=== PATIENT | male | born 1955 | race Caucasian/White ===

== ENCOUNTER 2016-07-12 06:34 | Emergency (ER) | payer OTHER ==
--- NOTE | 2016-07-12 07:17 | ED NURSING NOTES ---
Clinical Report - Nurses [facility] [address] [place] [address] 07/12/2016 6:36 Patient: ELIANA PEREZ TRIAGE Triage time 0648. Acuity: LEVEL 4. Chief Complaint: (unable to sleep). Alert. RAMON COMA SCORE: Ramon Coma Scale: 15- eyes open spontaneously (4); best verbal response- oriented x 4 (5); best motor response- obeys commands (6). --06:55 Savannah Godoy R.N. 06:48 07/12/16. BP: 138/91. HR: 88. RR: 18 (unlabored). O2 saturation: 98% on room air. Temp: 98.2 F (oral). Pain level now: 0/10. --06:55 Savannah Godoy R.N. Weight: 92.9 kg stated. Height/Length: 68 inches Per Patient. BMI: 31.1. --06:47 Savannah Godoy R.N. Medications QUEtiapine Fumarate Oral 100 mg, daily. --06:51 Savannah Godoy R.N. ClonazePAM Oral. --06:51 Savannah Godoy R.N. Allergies No Known Drug Allergy. --06:52 Savannah Godoy R.N. Medication/allergy information source: the patient. --06:55 Savannah Godoy R.N. History Arrived by private vehicle. Historian: patient. Unaccompanied. Primary physician (Steve). ( Pt c/o unable to sleep last night. Pt states he's out of his quetiapine and no refills left. Per pharmacy he has to make an appointment.). This started last night. 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 SOCIAL HX: Never smoker. No alcohol use or drug use. ABUSE ASSESSMENT: No report of abuse. FALL RISK ASSESSMENT: Fall risk assessment completed. No fall risk identified. NUTRITIONAL RISK ASSESSMENT: The nutritional risk assessment revealed no deficiencies. FUNCTIONAL ASSESSMENT: Functional assessment: no impairments noted. LEARNING NEEDS ASSESSMENT: The learning needs assessment revealed no barriers. SKIN INTEGRITY ASSESSMENT: Skin integrity risk assessment completed. No skin integrity risk identified. --06:55 Savannah Godoy R.N. PROBLEMS: Anxiety disorder. Depression. Bipolar Disorder. --06:53 Savannah Godoy R.N. ADDITIONAL SURGERIES: Collapsed lung. --06:53 Savannah Godoy R.N. Interventions ID band on patient. To treatment room. --06:55 Savannah Godoy R.N. PHYSICAL ASSESSMENT 06:50. Ambulatory to room. GENERAL / NEURO / PSYCH: Alert. Oriented X 4. Appears in no acute distress. RESPIRATORY: Respirations not labored. SKIN: Skin intact. Skin is warm and dry. Normal skin turgor. --07:08 Savannah Godoy R.N. NURSING PROGRESS NOTES Two patient identifiers checked. Side rails up x 1. Bed placed in lowest position. Brakes of bed on. Patient ready for evaluation. --06:55 Savannah Godoy R.N. DISPOSITION / DISCHARGE Departure time: 07:25. Discharge instructions provided and reviewed with the patient. Patient verbalized understanding. Written instructions not provided in Nepali. The patient was discharged home. He left the Emergency Department ambulatory and via private vehicle. --07:25 Vivian Garcia R.N. Locked/Released at 07/12/2016 13:38 by Vivian Garcia R.N.
--- NOTE | 2016-07-12 07:17 | ED NURSING NOTES ---
Clinical Report - Nurses [facility] [address] [place] [address] 07/12/2016 6:36 Patient: ELIANA PEREZ TRIAGE Triage time 0648. Acuity: LEVEL 4. Chief Complaint: (unable to sleep). Alert. RAMON COMA SCORE: Ramon Coma Scale: 15- eyes open spontaneously (4); best verbal response- oriented x 4 (5); best motor response- obeys commands (6). --06:55 Savannah Godoy R.N. 06:48 07/12/16. BP: 138/91. HR: 88. RR: 18 (unlabored). O2 saturation: 98% on room air. Temp: 98.2 F (oral). Pain level now: 0/10. --06:55 Savannah Godoy R.N. Weight: 92.9 kg stated. Height/Length: 68 inches Per Patient. BMI: 31.1. --06:47 Savannah Godoy R.N. Medications QUEtiapine Fumarate Oral 100 mg, daily. --06:51 Savannah Godoy R.N. ClonazePAM Oral. --06:51 Savannah Godoy R.N. Allergies No Known Drug Allergy. --06:52 Savannah Godoy R.N. Medication/allergy information source: the patient. --06:55 Savannah Godoy R.N. History Arrived by private vehicle. Historian: patient. Unaccompanied. Primary physician (Steve). ( Pt c/o unable to sleep last night. Pt states he's out of his quetiapine and no refills left. Per pharmacy he has to make an appointment.). This started last night. 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 SOCIAL HX: Never smoker. No alcohol use or drug use. ABUSE ASSESSMENT: No report of abuse. FALL RISK ASSESSMENT: Fall risk assessment completed. No fall risk identified. NUTRITIONAL RISK ASSESSMENT: The nutritional risk assessment revealed no deficiencies. FUNCTIONAL ASSESSMENT: Functional assessment: no impairments noted. LEARNING NEEDS ASSESSMENT: The learning needs assessment revealed no barriers. SKIN INTEGRITY ASSESSMENT: Skin integrity risk assessment completed. No skin integrity risk identified. --06:55 Savannah Godoy R.N. PROBLEMS: Anxiety disorder. Depression. Bipolar Disorder. --06:53 Savannah Godoy R.N. ADDITIONAL SURGERIES: Collapsed lung. --06:53 Savannah Godoy R.N. Interventions ID band on patient. To treatment room. --06:55 Savannah Godoy R.N. PHYSICAL ASSESSMENT 06:50. Ambulatory to room. GENERAL / NEURO / PSYCH: Alert. Oriented X 4. Appears in no acute distress. RESPIRATORY: Respirations not labored. SKIN: Skin intact. Skin is warm and dry. Normal skin turgor. --07:08 Savannah Godoy R.N. NURSING PROGRESS NOTES Two patient identifiers checked. Side rails up x 1. Bed placed in lowest position. Brakes of bed on. Patient ready for evaluation. --06:55 Savannah Godoy R.N. DISPOSITION / DISCHARGE Departure time: 07:25. Discharge instructions provided and reviewed with the patient. Patient verbalized understanding. Written instructions not provided in Turkmen. The patient was discharged home. He left the Emergency Department ambulatory and via private vehicle. --07:25 iVvian Garcia R.N. Locked/Released at 07/12/2016 13:38 by Vivian Garcia R.N.
--- NOTE | 2016-07-12 07:17 | ED CLINICAL REPORT ---
Clinical Report - Physicians/Mid Levels [facility] [address] [place] [address] 07/12/2016 6:36 Patient: ELIANA PEREZ Arrived- By private vehicle. Historian- patient. Referred (self). HISTORY OF PRESENT ILLNESS Chief Complaint: MEDICATION REFILL. This started yesterday. Has not been sleeping. No delusions, suicidal thoughts, self-injury inflicted or hallucinations. The symptoms are described as moderate. No injury is present. Additional history - reports he was told to get an appointment for refill of his medications. has bottle with him. bottle says that it ran out in May 2016. It is now July 12, 2016. Similar symptoms previously: None. Recent medical care: Not recently seen/assessed. REVIEW OF SYSTEMS No fever or skin rash. All systems otherwise negative, except as recorded above. PAST HISTORY See nurses notes. SOCIAL HISTORY Never smoker. No alcohol use or drug use. No social support. ADDITIONAL NOTES The nursing notes have been reviewed. PHYSICAL EXAM Vital Signs: 07/12/2016 06:48 BP: 138/91. HR: 88. RR: 18. O2 saturation: 98%. Temp: 98.2 F. Pain level now: 0/10. Blood pressure normal. Oxygen saturation normal. Appearance: Alert. No acute distress. Eyes: Pupils equal, round and reactive to light. Neck: Normal inspection. CVS: Normal heart rate and rhythm. Heart sounds normal. Respiratory: Chest nontender. Abdomen: Soft and nontender. Skin: Skin warm and dry. Normal skin color. Normal skin turgor. Psych / Neuro: Oriented X 3. Mood and affect normal. Speech normal. Cognition normal. Thought process and content normal. Denies suicidal thoughts. Patient does not express homicidal thoughts. Insight and judgement normal. Cranial nerves normal (as tested). No cerebellar findings. No motor deficit. No sensory deficit. Reflexes normal. PROGRESS AND PROCEDURES Course of Care: The patient is a 61-year-old male with past medical history significant for bipolar type I as well as anxiety presented for evaluation of medication refill insomnia. Patient presented around his medications and would like them refilled. Head discussion with patient in regards to his presentation here in the emergency department. Patient has no symptoms of suicidal ideation or homicidal ideation. Patient is not a danger to self or others. Had a long discussion with patient in regards to the appropriate use of the emergency department. Had discussion with patient in regards to safety of medication prescriptions by their doctor and not by an emergency medicine doctor. Explained to patient that these medications are somewhat specialized and require follow-up which cannot be done through the emergency department. Patient having unreasonable expectations from the emergency department. educated patient in regards to the appropriate role of the emergency department. The patient that only a few days of medication can be prescribed to him as it would be unwise to have a much larger prescription given. Patient was informed that he may not be able to get a refill of his psychiatric medications if he goes to the emergency department for safety reasons. Upon discharge, the patient was upset that he is not getting the actual pills here in the emergency department. The patient expected the pills to be given to him while here. Patient was again educated in regards to the role of the emergency department and the inability to dispense medications from the emergency department directly. Patient encouraged to follow up with his primary care doctor soon as possible for appropriate medication refill. The patient is nontoxic and is in no acute distress. Vital signs are unremarkable except for mild hypertension which he can follow up with his primary care doctor. Discussed the patient workup, diagnosis, home care, follow-up, and return precautions but all questions answered. The patient expressed understanding of these instructions and was agreeable to them. Disposition: Discharged. Condition: good. CLINICAL IMPRESSION 07/12/2016 06:48 BP: 138/91. HR: 88. RR: 18. O2 saturation: 98%. Temp: 98.2 F. Pain level now: 0/10. Hypertensive. Oxygen saturation normal. Essential hypertension. Psychophysiologic insomnia. History of Bipolar Disorder Medication refill for above diagnosis. INSTRUCTIONS Warnings: GENERAL WARNINGS: Return or contact your physician immediately if your condition worsens or changes unexpectedly, if not improving as expected, or if other problems arise. Specifically return if pain, vomiting, bleeding, breathing difficulty or fever. Your Current Medications: CONTINUE TAKING THE FOLLOWING MEDICATIONS: ClonazePAM Oral. QUEtiapine Fumarate Oral : 100 mg daily. Prescription Medications: Quetiapine 100 mg: take 1 tablet orally at bedtime. Dispense five (5). No refills. Follow-up: Return to the emergency department as needed. Follow up with your doctor in two days. Reason for referral: recheck today's concerns. Summary of care provided to patient via paper. Screening today revealed the patient's blood pressure to be in the normal range. The patient should follow up with a primary care provider for blood pressure management. Understanding of the discharge instructions verbalized by patient. (Electronically signed by Johnie Rosen Dr. 07/12/2016 7:32)
--- NOTE | 2016-07-12 13:39 | ED MAR SUMMARY ---
..... Medication Administration Record [facility] [address] [place], [place] [id number] Patient: ELIANA PEREZ Visit ID: [id number] 61y, M Weight: 92.9 kg Height/Length: 68 in BMI: 31.1 ALLERGIES: No Known Drug Allergy
--- NOTE | 2016-07-12 13:39 | ED MED RECONCILIATION SUMMARY ---
Patient: ELIANA PEREZ Medication Reconciliation Report [facility] VisitID: [id number] [address] [place] [address] 61y, M Registration Date/Time: 07/12/2016 Weight: 92.9 kg Height/Length: 68 in. BMI: 31.1 ALLERGIES: No Known Drug Allergy The patient's Home Medications are listed below: CONTINUE TAKING THE FOLLOWING MEDICATIONS: ClonazePAM Oral QUEtiapine Fumarate Oral 100 mg, daily The source(s) of the original Home Medication information: patient The following Medications were given to the patient in the Emergency Department: None. The following Medications were prescribed to the patient: Quetiapine 100 mg: take 1 tablet orally at bedtime. Dispense five (5). No refills. -- Johnie Rosen Dr.
--- NOTE | 2016-07-12 13:39 | ED MED RECONCILIATION SUMMARY ---
Patient: ELIANA PEREZ Medication Reconciliation Report [facility] VisitID: [id number] [address] [place] [address] 61y, M Registration Date/Time: 07/12/2016 Weight: 92.9 kg Height/Length: 68 in. BMI: 31.1 ALLERGIES: No Known Drug Allergy The patient's Home Medications are listed below: CONTINUE TAKING THE FOLLOWING MEDICATIONS: ClonazePAM Oral QUEtiapine Fumarate Oral 100 mg, daily The source(s) of the original Home Medication information: patient The following Medications were given to the patient in the Emergency Department: None. The following Medications were prescribed to the patient: Quetiapine 100 mg: take 1 tablet orally at bedtime. Dispense five (5). No refills. -- Johnie Rosen Dr.
--- NOTE | 2016-07-12 13:39 | ED MAR SUMMARY ---
..... Medication Administration Record [facility] [address], [place] [id number] Patient: ELIANA PEREZ Visit ID: [id number] 61y, M Weight: 92.9 kg Height/Length: 68 in BMI: 31.1 ALLERGIES: No Known Drug Allergy
--- NOTE | 2016-07-12 13:39 | ED DISCHARGE INSTRUCTIONS ---
Patient: ELIANA PEREZ General Instructions Located Within [facility] VisitID: [id number] [address] [place] [address] 61y, M Registration Date/Time: 07/12/2016 07/12/2016 06:48 BP: 138/91. HR: 88. RR: 18. O2 saturation: 98%. Temp: 98.2 F. Pain level now: 0/10. Hypertensive. Oxygen saturation normal. Essential hypertension. Psychophysiologic insomnia. History of Bipolar Disorder Medication refill for above diagnosis. INSTRUCTIONS Warnings: GENERAL WARNINGS: Return or contact your physician immediately if your condition worsens or changes unexpectedly, if not improving as expected, or if other problems arise. Specifically return if pain, vomiting, bleeding, breathing difficulty or fever. Your Current Medications: CONTINUE TAKING THE FOLLOWING MEDICATIONS: ClonazePAM Oral. QUEtiapine Fumarate Oral : 100 mg daily. Prescription Medications: Quetiapine 100 mg: take 1 tablet orally at bedtime. Dispense five (5). No refills. Follow-up: Return to the emergency department as needed. Follow up with your doctor in two days. Reason for referral: recheck today's concerns. Summary of care provided to patient via paper. Screening today revealed the patient's blood pressure to be in the normal range. The patient should follow up with a primary care provider for blood pressure management. Understanding of the discharge instructions verbalized by patient. ADDITIONAL INFORMATION High Blood Pressure -- To Be Confirmed [No Tx] Your blood pressure was higher today than normal. Sometimes anxiety or pain can cause a temporary rise in blood pressure that later returns to normal. If your blood pressure is high on one measurement, this does not mean that you have hypertension (a chronic illness). However, you must have your blood pressure measured again within the next few days to find out if its still high. A normal blood pressure is 120/80 or less. The first (top) number is the "systolic" pressure. The second (bottom) number is the "diastolic" pressure. Hypertension exists when either the top number is 140 or higher, OR the bottom number is 90 or higher on repeated measurements. Blood pressure in the range of 120-140 (systolic) or 80-89 (diastolic) is considered "pre-hypertension". This means your are at risk for getting hypertension. You should have regular blood pressure checks to be sure your blood pressure is not rising. Home Care: Measure your blood pressure on 3 different days and write down the results. This can be done at your doctor's office or this facility. Some pharmacies and grocery stores offer automated blood pressure machines for your use. Follow Up: If your blood pressure is "high" (over 120/80) on 2 out of 3 days, you will need to follow up with your doctor for further evaluation and treatment. DO NOT PUT THIS OFF! Untreated high blood pressure increases the risk for heart attack, also known as acute myocardial infarction, or AMI, and stroke. It is a treatable condition. Get Prompt Medical Attention if any of the following occur: Chest pain or shortness of breath Severe headache Throbbing or rushing sound in the ears Nosebleed Sudden severe abdominal pain Extreme drowsiness, confusion or fainting Dizziness or vertigo (dizziness with spinning sensation) Weakness of an arm or leg or one side of the face Difficulty with speech or vision Insomnia Insomnia refers to a difficulty going to sleep or staying asleep, or both. Insomnia has many causes, including anxiety, stress, depression, chronic pain, sleeping cycles out of balance due to working night shifts or excess napping during the day, and a condition called sleep apnea. Insomnia can be a side effect from stimulant medicines such as decongestants, asthma inhalers and pills, diet pills, and illegal drugs such as speed, crank, crack, and PCP. Home Care: Review your medicines with your doctor or pharmacist to find out if they can cause insomnia. Caffeine, smoking and alcohol also affect sleep. Limit your daily use and do not use these before bedtime. Alcohol may make you sleepy at first, but as its effects wear off, you may awaken a few hours later and have trouble returning to sleep. Do not exercise, eat or drink large amounts of liquid within 2 hours of your bedtime. Improve your sleep habits. Have a fixed bed and wake-up time. Try to keep noise, light and heat in your bedroom at a comfortable level. Try using earplugs or eyeshades if needed. Avoid watching TV in bed. If you do not fall asleep within 30 minutes, try to relax by reading or listening to soft music. Limit daytime napping to one 30 minute period, early in the day. Get regular exercise. Find other ways to lessen your stress level. If a medicine was prescribed to help reset your sleep patterns, take it as directed. Sleeping pills are intended for short-term use, only. If taken for too long, the effect wears off while the risk of physical addiction and psychological dependence increases. Follow-Up with your doctor or as directed by our staff if you feel that your insomnia is not responding to the above measures. Get Prompt Medical Attention if any of the following occur: Extreme restlessness or irritability Confusion or hallucinations (seeing or hearing things that are not there) Anxiety, depression Several days without sleeping You have been given the following additional information: Hypertension, To Be Confirmed Insomnia (Electronically signed by Johnie Rosen Dr. 07/12/2016 7:32)
== END 2016-07-12 07:26 | disposition home or self-care (01) ==
LOC: ED SRH 06:34
DX: F31.9 Bipolar disorder, unspecified (principal); F51.04 Psychophysiologic insomnia; I10 Essential (primary) hypertension; Z76.0 Encounter for issue of repeat prescription

== ENCOUNTER 2016-11-10 15:38 | Emergency (ER) | payer OTHER ==
--- NOTE | 2016-11-10 17:36 | ED ORDER SUMMARY ---
..... Patient: ELIANA PEREZ OrderSheet [facility] VisitID: [id number] [address] [place] [address] 61y, M Registration Date/Time: 11/10/2016 ORDER SHEET Weight: 97.5 kg (stated) Allergies: No Known Drug Allergy GENERAL ORDERS: CBC w Diff Urgent (16:16 11/10/2016 EKoroleva P.A.-C) (Ack 16:18 LMuller) (16:31 LMuller) CMP Urgent (16:16 11/10/2016 EKoroleva P.A.-C) (Ack 16:18 LMuller) (16:31 LMuller) UA-Culture if indicated Urgent (16:16 11/10/2016 EKoroleva P.A.-C) (Ack 16:18 LMuller) (22:45 Dom R.N.) TSH Urgent (17:04 11/10/2016 EKoroleva P.A.-C) (17:07 LMuller) MEDICATION ORDERS: IV FLUIDS: ORDER SHEET NOTES: [Electronically signed by Janie WoodyAKeaton-C (17:57 11/10/2016)] [Electronically signed by Alma Magdaleno R.N. (22:45 11/10/2016)] [Electronically locked/signed by Alma Magdaleno R.N. (22:45 11/10/2016)]
--- NOTE | 2016-11-10 17:36 | ED NURSING NOTES ---
Clinical Report - Nurses [facility] [address] [place] [address] 11/10/2016 15:38 Patient: ELIANA PEREZ TRIAGE Triage time 15:50 Nov 10 2016. Acuity: LEVEL 4. Chief Complaint: (unable to sleep, not eating/drinking and feeling sluggish). Alert. No acute distress. SEPSIS SCREEN: Sepsis Screen. Negative (no infection suspected/documented). KELLY COMA SCORE: [place] Coma Scale: 15- eyes open spontaneously (4); best verbal response- oriented x 4 (5); best motor response- obeys commands (6). --15:59 Alma Magdaleno R.N. 15:52 11/10/16. BP: 151/94. HR: 105. RR: 16. O2 saturation: 96%. Temp: 98.5 F. Pain level now: 0/10. --15:59 Alma Magdaleno R.N. Weight: 97.5 kg stated. Height/Length: 68 inches Per Patient. BMI: 32.7. --15:52 Alma Magdaleno R.N. Medications ClonazePAM Oral. QUEtiapine Fumarate Oral 100 mg, daily. --15:55 Alma Magdaleno R.N. Ambien Oral. --15:56 Alma Magdaleno R.N. Bipolar medications. --15:56 Alma Magdaleno R.N. Allergies No Known Drug Allergy. --15:55 Alma Magdaleno R.N. History Arrived by private vehicle. Historian: patient. Onset. (about 4 days ago). ( pt states that [facility] and since the day after he has not been able to sleep eat drink or think very clearly). 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 PAST MEDICAL HX: Immunizations: up-to-date. SOCIAL HX: Never smoker. No alcohol use or drug use. No infectious disease exposure. SELF HARM ASSESSMENT: A self harm assessment was performed. The patient answered "no" to the question "Do you have thoughts of harming or killing yourself?". FALL RISK ASSESSMENT: Fall risk assessment completed. No fall risk identified. NUTRITIONAL RISK ASSESSMENT: The nutritional risk assessment revealed no deficiencies. FUNCTIONAL ASSESSMENT: Functional assessment: no impairments noted. LEARNING NEEDS ASSESSMENT: The learning needs assessment revealed no barriers. ABUSE ASSESSMENT: Abuse assessment: The patient was asked "Do you feel safe in your home?". SKIN INTEGRITY ASSESSMENT: Skin integrity risk assessment completed. No skin integrity risk identified. --15:59 Alma Magdaleno R.N. PROBLEMS: Hypertension. Insomnia. Anxiety disorder. Depression. Bipolar Disorder. --15:57 Alma Magdaleno R.N. ADDITIONAL SURGERIES: Ankle surgery. Collapsed lung. --15:57 Alma Magdaleno R.N. Interventions ID band on patient. To room. --15:59 Alma Magdaleno R.N. PHYSICAL ASSESSMENT GENERAL / NEURO / PSYCH: Alert. Oriented X 4. Appears in no acute distress. ( sluggish and shakey). HEENT: No facial asymmetry noted. RESPIRATORY: Respirations not labored. CVS: Capillary refill less than 2 seconds. Pulses within normal limits. GI / : Abdomen soft and nontender. SKIN: Skin is warm and dry. --16:00 Alma Magdaleno R.N. NURSING PROGRESS NOTES Patient gowned. Head of bed elevated. Patient identifiers checked. Call light placed in reach. Side rails up x 1. Bed placed in lowest position. Brakes of bed on. --15:59 Alma Magdaleno R.N. ( pt states that he is unable to urinate at this time.). --17:32 Alma Magdaleno R.N. 17:32 11/10/16. BP: 140/83. HR: 95. RR: 12. O2 saturation: 96%. Pain level now: 0/10. --17:32 Alma Magdaleno R.N. DISPOSITION / DISCHARGE Departure time: 17:45 Nov 10 2016. Condition at departure: unchanged. No learning barriers present. Discharge instructions provided and reviewed with the patient. Reviewed medication(s) side effects, precautions, dosing and course information. Reviewed referral to a primary care physician for followup. Patient verbalized understanding. Written instructions provided in Welsh. The patient was discharged home. He left the Emergency Department ambulatory and via private vehicle. Patient driving. FALL RISK ASSESSMENT: Fall risk assessment completed. No fall risk identified. --17:45 Alma Magdaleno R.N. 17:32 11/10/16. BP: 140/83. HR: 95. RR: 12. O2 saturation: 96%. Pain level now: 0/10. --17:45 Alma Magdaleno R.N. Locked/Released at 11/10/2016 22:45 by Alma Magdaleno R.N.
--- NOTE | 2016-11-10 17:36 | ED CLINICAL REPORT ---
Clinical Report - Physicians/Mid Levels Located Within [facility] [address] [place] [address] 11/10/2016 15:38 Patient: ELIANA PEREZ Time Seen: 16:24 Nov 10 2016. Arrived- By private vehicle. Historian- patient. HISTORY OF PRESENT ILLNESS Chief Complaint: insomnia. 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 (patient reports recently use of steroid injections as prescribed, has had 4-6 doses, with known decreased ability and desire to sleep, as well as desire to drink water, has been watching this onset generalized at home in his apartment, otherwise has not been doing other activities. Denies any shortness of breath, tremors, headache. He has no other complaints, cough, shortness of breath.). REVIEW OF SYSTEMS No fever, sore throat, nasal congestion, cough or difficulty breathing. No bloody stools, skin rash, blackouts or double vision. All systems otherwise negative, except as recorded above. PAST HISTORY Problems: Hypertension. Insomnia. Anxiety disorder. Depression. Bipolar Disorder. Medications: Bipolar medications. Ambien Oral. ClonazePAM Oral. QUEtiapine Fumarate Oral 100 mg, daily. Allergies: No Known Drug Allergy. SOCIAL HISTORY Never smoker. No alcohol use or drug use. ADDITIONAL NOTES The nursing notes have been reviewed. PHYSICAL EXAM Vital Signs: 11/10/2016 15:52 BP: 151/94. HR: 105. RR: 16. O2 saturation: 96%. Temp: 98.5 F. Pain level now: 0/10. Appearance: Alert. Eyes: Eyes normal inspection. ENT: Ears normal. Nose normal. CVS: Normal heart rate and rhythm. Heart sounds normal. No extra heart sounds. Respiratory: No respiratory distress. Breath sounds normal. Back: Normal inspection. Skin: Skin warm. Normal skin color. Neuro: Oriented X 3. LABS, X-RAYS, AND EKG Laboratory Tests: CBC w Diff: (SARTHAK: 11/10/2016 16:20) ( MsgRcvd 11/10/2016 16:43) Final results Test Result Flag Units (Reference) WHITE BLOOD COUNT 10.7 K/uL (4.5-11.5) RED BLOOD COUNT 5.05 M/uL (4.50-5.90) HEMOGLOBIN 15.8 gm/dL (13.5-17.5) HEMATOCRIT 47.9 % (41.0-53.0) MEAN CELL VOLUME 95 fL (80-100) MEAN CORPUSCULAR HGB 31 pg (26-34) MEAN CORPUSCULAR HGB CONC 33 g/dL (31-37) RED CELL DISTRIBUTION WIDTH 13.4 % (11.6-14.8) PLATELET COUNT 258 K/uL (150-400) NEUTROPHIL % 78.1 H % (50-75) LYMPH % 11.8 L % (25-40) MONO % 9.6 % (3-14) EOSINOPHIL % 0.2 % (0-4) BASOPHIL % 0.3 % (0-2) CMP: (SARTHAK: 11/10/2016 16:20) ( MsgRcvd 11/10/2016 17:23) Final results Test Result Flag Units (Reference) GLUCOSE 122 H mg/dL (70-110) BUN 21 H mg/dL (7-18) CREATININE 1.3 mg/dL (0.6-1.3) Estimated GFR >60 mL/min Estimated GFR- >60 mL/min Note: Persistent reduction over 3 months in eGFR<60 mL/min/1.73 m2 defines CKD. Patients with eGFR values>=60 mL/min/1.73 m2 may also have CKD if evidence ofpersistent proteinuria. Additional information may be foundat www.kidney.org. SODIUM 138 mmol/L (136-145) POTASSIUM 4.2 mmol/L (3.5-5.1) CHLORIDE 103 mmol/L (98-107) CARBON DIOXIDE 22 mmol/L (21-32) CALCIUM 9.3 mg/dL (8.5-10.1) TOTAL PROTEIN 7.9 g/dL (6.4-8.2) ALBUMIN 4.1 g/dL (3.3-5.0) BILIRUBIN, TOTAL 1.0 mg/dL (0.0-1.0) ALKALINE PHOSPHATASE 97 U/L (46-116) AST (SGOT) 15 U/L (15-37) ALT (SGPT) 29 U/L (12-78) . PROGRESS AND PROCEDURES Course of Care: Patient with difficulty sleeping. Denies being out of his medications. Patient very stable. Recent new medication of testosterone. Otherwise patient is stable. Patient denies thoughts of harming himself or others. I do feel he is safe to be discharged to home care. Patient has adequate follow-up. Patient is stable. Symptoms better. Patient/family counseled. Disposition: Discharged. CLINICAL IMPRESSION insomnia likely due to medication reaction. INSTRUCTIONS Prescription Medications: Ativan 2 mg: take 2 orally at bedtime for 3 days. No refill. (#6) OTC Medications: Benadryl Allergy 25 mg (available over the counter): take 2 orally as needed for sleep. No refill. Substitution is permissible. (10) Follow-up: Follow up with your doctor in two days. (Electronically signed by Janie Woody P.A.-C 11/10/2016 17:57)
--- NOTE | 2016-11-10 17:36 | ED NURSING NOTES ---
Clinical Report - Nurses [facility] [address] [place] [address] 11/10/2016 15:38 Patient: ELIANA PEREZ TRIAGE Triage time 15:50 Nov 10 2016. Acuity: LEVEL 4. Chief Complaint: (unable to sleep, not eating/drinking and feeling sluggish). Alert. No acute distress. SEPSIS SCREEN: Sepsis Screen. Negative (no infection suspected/documented). KELLY COMA SCORE: Jay Coma Scale: 15- eyes open spontaneously (4); best verbal response- oriented x 4 (5); best motor response- obeys commands (6). --15:59 Alma Magdaleno R.N. 15:52 11/10/16. BP: 151/94. HR: 105. RR: 16. O2 saturation: 96%. Temp: 98.5 F. Pain level now: 0/10. --15:59 Alma Magdaleno R.N. Weight: 97.5 kg stated. Height/Length: 68 inches Per Patient. BMI: 32.7. --15:52 Alma Magdaleno R.N. Medications ClonazePAM Oral. QUEtiapine Fumarate Oral 100 mg, daily. --15:55 Alma Magdaleno R.N. Ambien Oral. --15:56 Alma Magdaleno R.N. Bipolar medications. --15:56 Alma Magdaleno R.N. Allergies No Known Drug Allergy. --15:55 Alma Magdaleno R.N. History Arrived by private vehicle. Historian: patient. Onset. (about 4 days ago). ( pt states that he got [facility] ago and since the day after he has not been able to sleep eat drink or think very clearly). 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 PAST MEDICAL HX: Immunizations: up-to-date. SOCIAL HX: Never smoker. No alcohol use or drug use. No infectious disease exposure. SELF HARM ASSESSMENT: A self harm assessment was performed. The patient answered "no" to the question "Do you have thoughts of harming or killing yourself?". FALL RISK ASSESSMENT: Fall risk assessment completed. No fall risk identified. NUTRITIONAL RISK ASSESSMENT: The nutritional risk assessment revealed no deficiencies. FUNCTIONAL ASSESSMENT: Functional assessment: no impairments noted. LEARNING NEEDS ASSESSMENT: The learning needs assessment revealed no barriers. ABUSE ASSESSMENT: Abuse assessment: The patient was asked "Do you feel safe in your home?". SKIN INTEGRITY ASSESSMENT: Skin integrity risk assessment completed. No skin integrity risk identified. --15:59 Alma Magdaleno R.N. PROBLEMS: Hypertension. Insomnia. Anxiety disorder. Depression. Bipolar Disorder. --15:57 Alma Magdaleno R.N. ADDITIONAL SURGERIES: Ankle surgery. Collapsed lung. --15:57 Alma Magdaleno R.N. Interventions ID band on patient. To room. --15:59 Alma Magdaleno R.N. PHYSICAL ASSESSMENT GENERAL / NEURO / PSYCH: Alert. Oriented X 4. Appears in no acute distress. ( sluggish and shakey). HEENT: No facial asymmetry noted. RESPIRATORY: Respirations not labored. CVS: Capillary refill less than 2 seconds. Pulses within normal limits. GI / : Abdomen soft and nontender. SKIN: Skin is warm and dry. --16:00 Alma Magdaleno R.N. NURSING PROGRESS NOTES Patient gowned. Head of bed elevated. Patient identifiers checked. Call light placed in reach. Side rails up x 1. Bed placed in lowest position. Brakes of bed on. --15:59 Alma Magdaleno R.N. ( pt states that he is unable to urinate at this time.). --17:32 Alma Magdaleno R.N. 17:32 11/10/16. BP: 140/83. HR: 95. RR: 12. O2 saturation: 96%. Pain level now: 0/10. --17:32 Alma Magdaleno R.N. DISPOSITION / DISCHARGE Departure time: 17:45 Nov 10 2016. Condition at departure: unchanged. No learning barriers present. Discharge instructions provided and reviewed with the patient. Reviewed medication(s) side effects, precautions, dosing and course information. Reviewed referral to a primary care physician for followup. Patient verbalized understanding. Written instructions provided in Portuguese. The patient was discharged home. He left the Emergency Department ambulatory and via private vehicle. Patient driving. FALL RISK ASSESSMENT: Fall risk assessment completed. No fall risk identified. --17:45 Alma Magdaleno R.N. 17:32 11/10/16. BP: 140/83. HR: 95. RR: 12. O2 saturation: 96%. Pain level now: 0/10. --17:45 Alma Magdaleno R.N. Locked/Released at 11/10/2016 22:45 by Alma Magdaleno R.N.
--- NOTE | 2016-11-10 17:36 | ED CLINICAL REPORT ---
Clinical Report - Physicians/Mid Levels [facility] [address] [place] [address] 11/10/2016 15:38 Patient: ELIANA PEREZ Time Seen: 16:24 Nov 10 2016. Arrived- By private vehicle. Historian- patient. HISTORY OF PRESENT ILLNESS Chief Complaint: insomnia. 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 (patient reports recently use of steroid injections as prescribed, has had 4-6 doses, with known decreased ability and desire to sleep, as well as desire to drink water, has been watching this onset generalized at home in his apartment, otherwise has not been doing other activities. Denies any shortness of breath, tremors, headache. He has no other complaints, cough, shortness of breath.). REVIEW OF SYSTEMS No fever, sore throat, nasal congestion, cough or difficulty breathing. No bloody stools, skin rash, blackouts or double vision. All systems otherwise negative, except as recorded above. PAST HISTORY Problems: Hypertension. Insomnia. Anxiety disorder. Depression. Bipolar Disorder. Medications: Bipolar medications. Ambien Oral. ClonazePAM Oral. QUEtiapine Fumarate Oral 100 mg, daily. Allergies: No Known Drug Allergy. SOCIAL HISTORY Never smoker. No alcohol use or drug use. ADDITIONAL NOTES The nursing notes have been reviewed. PHYSICAL EXAM Vital Signs: 11/10/2016 15:52 BP: 151/94. HR: 105. RR: 16. O2 saturation: 96%. Temp: 98.5 F. Pain level now: 0/10. Appearance: Alert. Eyes: Eyes normal inspection. ENT: Ears normal. Nose normal. CVS: Normal heart rate and rhythm. Heart sounds normal. No extra heart sounds. Respiratory: No respiratory distress. Breath sounds normal. Back: Normal inspection. Skin: Skin warm. Normal skin color. Neuro: Oriented X 3. LABS, X-RAYS, AND EKG Laboratory Tests: CBC w Diff: (SARTHAK: 11/10/2016 16:20) ( MsgRcvd 11/10/2016 16:43) Final results Test Result Flag Units (Reference) WHITE BLOOD COUNT 10.7 K/uL (4.5-11.5) RED BLOOD COUNT 5.05 M/uL (4.50-5.90) HEMOGLOBIN 15.8 gm/dL (13.5-17.5) HEMATOCRIT 47.9 % (41.0-53.0) MEAN CELL VOLUME 95 fL (80-100) MEAN CORPUSCULAR HGB 31 pg (26-34) MEAN CORPUSCULAR HGB CONC 33 g/dL (31-37) RED CELL DISTRIBUTION WIDTH 13.4 % (11.6-14.8) PLATELET COUNT 258 K/uL (150-400) NEUTROPHIL % 78.1 H % (50-75) LYMPH % 11.8 L % (25-40) MONO % 9.6 % (3-14) EOSINOPHIL % 0.2 % (0-4) BASOPHIL % 0.3 % (0-2) CMP: (SARTHAK: 11/10/2016 16:20) ( MsgRcvd 11/10/2016 17:23) Final results Test Result Flag Units (Reference) GLUCOSE 122 H mg/dL (70-110) BUN 21 H mg/dL (7-18) CREATININE 1.3 mg/dL (0.6-1.3) Estimated GFR >60 mL/min Estimated GFR- >60 mL/min Note: Persistent reduction over 3 months in eGFR<60 mL/min/1.73 m2 defines CKD. Patients with eGFR values>=60 mL/min/1.73 m2 may also have CKD if evidence ofpersistent proteinuria. Additional information may be foundat www.kidney.org. SODIUM 138 mmol/L (136-145) POTASSIUM 4.2 mmol/L (3.5-5.1) CHLORIDE 103 mmol/L (98-107) CARBON DIOXIDE 22 mmol/L (21-32) CALCIUM 9.3 mg/dL (8.5-10.1) TOTAL PROTEIN 7.9 g/dL (6.4-8.2) ALBUMIN 4.1 g/dL (3.3-5.0) BILIRUBIN, TOTAL 1.0 mg/dL (0.0-1.0) ALKALINE PHOSPHATASE 97 U/L (46-116) AST (SGOT) 15 U/L (15-37) ALT (SGPT) 29 U/L (12-78) . PROGRESS AND PROCEDURES Course of Care: Patient with difficulty sleeping. Denies being out of his medications. Patient very stable. Recent new medication of testosterone. Otherwise patient is stable. Patient denies thoughts of harming himself or others. I do feel he is safe to be discharged to home care. Patient has adequate follow-up. Patient is stable. Symptoms better. Patient/family counseled. Disposition: Discharged. CLINICAL IMPRESSION insomnia likely due to medication reaction. INSTRUCTIONS Prescription Medications: Ativan 2 mg: take 2 orally at bedtime for 3 days. No refill. (#6) OTC Medications: Benadryl Allergy 25 mg (available over the counter): take 2 orally as needed for sleep. No refill. Substitution is permissible. (10) Follow-up: Follow up with your doctor in two days. (Electronically signed by Janie Woody P.A.-C 11/10/2016 17:57)
--- NOTE | 2016-11-10 17:36 | ED ORDER SUMMARY ---
..... Patient: ELIANA PEREZ OrderSheet [facility] VisitID: [id number] [address] [place] [address] 61y, M Registration Date/Time: 11/10/2016 ORDER SHEET Weight: 97.5 kg (stated) Allergies: No Known Drug Allergy GENERAL ORDERS: CBC w Diff Urgent (16:16 11/10/2016 EKoroleva P.A.-C) (Ack 16:18 LMuller) (16:31 LMuller) CMP Urgent (16:16 11/10/2016 EKoroleva P.A.-C) (Ack 16:18 LMuller) (16:31 LMuller) UA-Culture if indicated Urgent (16:16 11/10/2016 EKoroleva P.A.-C) (Ack 16:18 LMuller) (22:45 Dom R.N.) TSH Urgent (17:04 11/10/2016 EKoroleva P.A.-C) (17:07 LMuller) MEDICATION ORDERS: IV FLUIDS: ORDER SHEET NOTES: [Electronically signed by Janie WoodyAKeaton-C (17:57 11/10/2016)] [Electronically signed by Alma Magdaleno R.N. (22:45 11/10/2016)] [Electronically locked/signed by Alma Magdaleno R.N. (22:45 11/10/2016)]
--- NOTE | 2016-11-10 22:45 | ED MED RECONCILIATION SUMMARY ---
Patient: ELIANA PEREZ Medication Reconciliation Report [facility] VisitID: [id number] [address] [place] [address] 61y, M Registration Date/Time: 11/10/2016 Weight: 97.5 kg Height/Length: 68 in. BMI: 32.7 ALLERGIES: No Known Drug Allergy The patient's Home Medications are listed below: THE FOLLOWING MEDICATIONS NEED TO BE RECONCILED: Ambien Oral Bipolar medications ClonazePAM Oral QUEtiapine Fumarate Oral 100 mg, daily The source(s) of the original Home Medication information: Not obtained. The following Medications were given to the patient in the Emergency Department: None. The following Medications were prescribed to the patient: Ativan 2 mg: take 2 orally at bedtime for 3 days. No refill.(#6) -- Janie Woody, P.A.-C Benadryl Allergy 25 mg (available over the counter): take 2 orally as needed for sleep. No refill. Substitution is permissible.(10) -- Janie Woody, P.A.-C
--- NOTE | 2016-11-10 22:45 | ED MAR SUMMARY ---
..... Medication Administration Record [facility] [address] [place], [place] [id number] Patient: ELIANA PEREZ Visit ID: [id number] 61y, M Weight: 97.5 kg Height/Length: 68 in BMI: 32.7 ALLERGIES: No Known Drug Allergy
--- NOTE | 2016-11-10 22:45 | ED DISCHARGE INSTRUCTIONS ---
Patient: ELIANA PEREZ General Instructions [facility] VisitID: [id number] [place] [address] 61y, M Registration Date/Time: 11/10/2016 insomnia likely due to medication reaction. INSTRUCTIONS Prescription Medications: Ativan 2 mg: take 2 orally at bedtime for 3 days. No refill. (#6) OTC Medications: Benadryl Allergy 25 mg (available over the counter): take 2 orally as needed for sleep. No refill. Substitution is permissible. (10) Follow-up: Follow up with your doctor in two days. ADDITIONAL INFORMATION Lorazepam Oral tablet What is this medicine? LORAZEPAM (birgit A ze nellie) is a benzodiazepine. It is used to treat anxiety. How should I use this medicine? Take this medicine by mouth with a glass of water. Follow the directions on the prescription label. If it upsets your stomach, take it with food or milk. Take your medicine at regular intervals. Do not take it more often than directed. Do not stop taking except on the advice of your doctor or health pharmacist critical care. Talk to your dairy equipment mechanic regarding the use of this medicine in children. Special care may be needed. What side effects may I notice from receiving this medicine? Side effects that you should report to your doctor or health pharmacist critical care as soon as possible: changes in vision confusion depression mood changes, excitability or aggressive behavior movement difficulty, staggering or jerky movements muscle cramps restlessness weakness or tiredness Side effects that usually do not require medical attention (report to your doctor or health pharmacist critical care if they continue or are bothersome): constipation or diarrhea difficulty sleeping, nightmares dizziness, drowsiness headache nausea, vomiting What may interact with this medicine? barbiturate medicines for inducing sleep or treating seizures, like phenobarbital clozapine medicines for depression, mental problems or psychiatric disturbances medicines for sleep phenytoin probenecid theophylline valproic acid What if I miss a dose? If you miss a dose, take it as soon as you can. If it is almost time for your next dose, take only that dose. Do not take double or extra doses. Where should I keep my medicine? Keep out of the reach of children. This medicine can be abused. Keep your medicine in a safe place to protect it from theft. Do not share this medicine with anyone. Selling or giving away this medicine is dangerous and against the law. Store at room temperature between 20 and 25 degrees C (68 and 77 degrees F). Protect from light. Keep container tightly closed. Throw away any unused medicine after the expiration date. What should I tell my health care provider before I take this medicine? They need to know if you have any of these conditions: alcohol or drug abuse problem bipolar disorder, depression, psychosis or other mental health condition glaucoma kidney or liver disease lung disease or breathing difficulties myasthenia gravis Parkinson's disease seizures or a history of seizures suicidal thoughts an unusual or allergic reaction to lorazepam, other benzodiazepines, foods, dyes, or preservatives or trying to get breast-feeding What should I watch for while using this medicine? Visit your doctor or health pharmacist critical care for regular checks on your progress. Your body may become dependent on this medicine, ask your doctor or health pharmacist critical care if you still need to take it. However, if you have been taking this medicine regularly for some time, do not suddenly stop taking it. You must gradually reduce the dose or you may get severe side effects. Ask your doctor or health pharmacist critical care for advice before increasing or decreasing the dose. Even after you stop taking this medicine it can still affect your body for several days. You may get drowsy or dizzy. Do not drive, use machinery, or do anything that needs mental alertness until you know how this medicine affects you. To reduce the risk of dizzy and fainting spells, do not stand or sit up quickly, especially if you are an older patient. Alcohol may increase dizziness and drowsiness. Avoid alcoholic drinks. Do not treat yourself for coughs, colds or allergies without asking your doctor or health pharmacist critical care for advice. Some ingredients can increase possible side effects. You have been given the following additional information: Lorazepam Oral tablet (Electronically signed by Janie Woody P.A.-C 11/10/2016 17:57)
--- NOTE | 2016-11-10 22:45 | ED DISCHARGE INSTRUCTIONS ---
Patient: ELIANA PEREZ General Instructions [facility] VisitID: [id number] [place] [address] 61y, M Registration Date/Time: 11/10/2016 insomnia likely due to medication reaction. INSTRUCTIONS Prescription Medications: Ativan 2 mg: take 2 orally at bedtime for 3 days. No refill. (#6) OTC Medications: Benadryl Allergy 25 mg (available over the counter): take 2 orally as needed for sleep. No refill. Substitution is permissible. (10) Follow-up: Follow up with your doctor in two days. ADDITIONAL INFORMATION Lorazepam Oral tablet What is this medicine? LORAZEPAM (birgit A ze nellie) is a benzodiazepine. It is used to treat anxiety. How should I use this medicine? Take this medicine by mouth with a glass of water. Follow the directions on the prescription label. If it upsets your stomach, take it with food or milk. Take your medicine at regular intervals. Do not take it more often than directed. Do not stop taking except on the advice of your doctor or health animal care supervisor. Talk to your program medical director regarding the use of this medicine in children. Special care may be needed. What side effects may I notice from receiving this medicine? Side effects that you should report to your doctor or health animal care supervisor as soon as possible: changes in vision confusion depression mood changes, excitability or aggressive behavior movement difficulty, staggering or jerky movements muscle cramps restlessness weakness or tiredness Side effects that usually do not require medical attention (report to your doctor or health animal care supervisor if they continue or are bothersome): constipation or diarrhea difficulty sleeping, nightmares dizziness, drowsiness headache nausea, vomiting What may interact with this medicine? barbiturate medicines for inducing sleep or treating seizures, like phenobarbital clozapine medicines for depression, mental problems or psychiatric disturbances medicines for sleep phenytoin probenecid theophylline valproic acid What if I miss a dose? If you miss a dose, take it as soon as you can. If it is almost time for your next dose, take only that dose. Do not take double or extra doses. Where should I keep my medicine? Keep out of the reach of children. This medicine can be abused. Keep your medicine in a safe place to protect it from theft. Do not share this medicine with anyone. Selling or giving away this medicine is dangerous and against the law. Store at room temperature between 20 and 25 degrees C (68 and 77 degrees F). Protect from light. Keep container tightly closed. Throw away any unused medicine after the expiration date. What should I tell my health care provider before I take this medicine? They need to know if you have any of these conditions: alcohol or drug abuse problem bipolar disorder, depression, psychosis or other mental health condition glaucoma kidney or liver disease lung disease or breathing difficulties myasthenia gravis Parkinson's disease seizures or a history of seizures suicidal thoughts an unusual or allergic reaction to lorazepam, other benzodiazepines, foods, dyes, or preservatives or trying to get breast-feeding What should I watch for while using this medicine? Visit your doctor or health animal care supervisor for regular checks on your progress. Your body may become dependent on this medicine, ask your doctor or health animal care supervisor if you still need to take it. However, if you have been taking this medicine regularly for some time, do not suddenly stop taking it. You must gradually reduce the dose or you may get severe side effects. Ask your doctor or health animal care supervisor for advice before increasing or decreasing the dose. Even after you stop taking this medicine it can still affect your body for several days. You may get drowsy or dizzy. Do not drive, use machinery, or do anything that needs mental alertness until you know how this medicine affects you. To reduce the risk of dizzy and fainting spells, do not stand or sit up quickly, especially if you are an older patient. Alcohol may increase dizziness and drowsiness. Avoid alcoholic drinks. Do not treat yourself for coughs, colds or allergies without asking your doctor or health animal care supervisor for advice. Some ingredients can increase possible side effects. You have been given the following additional information: Lorazepam Oral tablet (Electronically signed by Janie Woody P.A.-C 11/10/2016 17:57)
--- NOTE | 2016-11-10 22:45 | ED MED RECONCILIATION SUMMARY ---
Patient: ELIANA PEREZ Medication Reconciliation Report [facility] VisitID: [id number] [address] [place] [address] 61y, M Registration Date/Time: 11/10/2016 Weight: 97.5 kg Height/Length: 68 in. BMI: 32.7 ALLERGIES: No Known Drug Allergy The patient's Home Medications are listed below: THE FOLLOWING MEDICATIONS NEED TO BE RECONCILED: Ambien Oral Bipolar medications ClonazePAM Oral QUEtiapine Fumarate Oral 100 mg, daily The source(s) of the original Home Medication information: Not obtained. The following Medications were given to the patient in the Emergency Department: None. The following Medications were prescribed to the patient: Ativan 2 mg: take 2 orally at bedtime for 3 days. No refill.(#6) -- Janie Woody, P.A.-C Benadryl Allergy 25 mg (available over the counter): take 2 orally as needed for sleep. No refill. Substitution is permissible.(10) -- Janie Woody, P.A.-C
--- NOTE | 2016-11-10 22:45 | ED MAR SUMMARY ---
..... Medication Administration Record [facility] [address] [place], [place] [id number] Patient: ELIANA PEREZ Visit ID: [id number] 61y, M Weight: 97.5 kg Height/Length: 68 in BMI: 32.7 ALLERGIES: No Known Drug Allergy
== END 2016-11-10 17:45 | disposition home or self-care (01) ==
LOC: ED SRH 15:38
DX: G47.00 Insomnia, unspecified (principal); I10 Essential (primary) hypertension; Z79.899 Other long term (current) drug therapy
CPT/HCPCS: 90100; 93140; 95059